=== PATIENT | male | born 1970 | race Caucasian/White ===

== ENCOUNTER → 2018-12-15 | Outpatient (CLI) | payer BC ==
--- NOTE | 2018-12-15 11:41 | REP ---
Right hand four views : There is no fracture or dislocation. Mineralization and joint spaces are normal. There are no calcifications or foreign bodies. Impression: Negative right hand . Electronically Signed by Karson Leblanc MD 12/15/2018 11:31 A
== END ==
LOC: M ADAMS 10:44
PROVIDERS: ATTEND Physician Assistant
DX: M79.641 Pain in right hand (principal)